=== PATIENT | male | born 1950 | race Hispanic/Latino ===

== ENCOUNTER 2023-09-12 11:24 | Emergency (ER) | payer BC, MEDICARE ==
[2023-09-12] MEDS ORDERED: traMADol HCl 50 MG TAB ONE (15:03)
== END 2023-09-12 16:45 | disposition home or self-care (01) ==
LOC: ERS 11:24
DX: S22.41XA Multiple fractures of ribs, right side, initial encounter for closed fracture (principal); W11.XXXA Fall on and from ladder, initial encounter
CPT/HCPCS: 71045; 71250